=== PATIENT | female | born 1990 | race Hispanic/Latino ===

== ENCOUNTER 2018-08-24 20:05 | Emergency (ER) | payer OTHER ==
[~2018-08-24 20:05] MED LIST: AZIT250T9 PO; METO25 PO
[2018-08-24] MEDS ORDERED: ACETAMINOPHEN 325 MG TAB ONE (20:38)
== END 2018-08-24 21:26 | disposition home or self-care (01) ==
LOC: EDH 20:05
DX: O9A.212 Injury, poisoning and certain other consequences of external causes complicating pregnancy, second trimester (principal); S93.401A Sprain of unspecified ligament of right ankle, initial encounter; Z88.0 Allergy status to penicillin; Z79.899 Other long term (current) drug therapy; Z3A.18 18 weeks gestation of pregnancy; W10.8XXA Fall (on) (from) other stairs and steps, initial encounter; Y93.89 Activity, other specified; Y92.098 Other place in other non-institutional residence as the place of occurrence of the external cause; Y99.8 Other external cause status
CPT/HCPCS: 73610